=== PATIENT | female | born 1980 | race Caucasian/White ===

== ENCOUNTER 2017-08-30 21:37 | Emergency (ER) | payer OTHER ==
[~2017-08-30] VITALS: Ht 167.6 cm; Wt 112.0 kg
[~2017-08-30 21:37] MED LIST: AUGMENTIN875 MG PO; BACTRIM,SEPT1 TABLET PO; OXYCODONE-APAP1 EACH PO; VICODIN 5-3001 EACH PO
[2017-08-30] MEDS ORDERED: FLEXERIL10 MG PO (22:21)
[2017-08-30] MEDS ORDERED: NAPROSYN500 MG PO (22:21)
[2017-08-30 22:40] VITALS: BP 132/89
== END 2017-08-30 22:40 | disposition home or self-care (01) ==
LOC: EME 21:37
DX: S46.911A Strain of unspecified muscle, fascia and tendon at shoulder and upper arm level, right arm, initial encounter (principal); W19.XXXA Unspecified fall, initial encounter; F17.200 Nicotine dependence, unspecified, uncomplicated
CPT/HCPCS: 73030; 73060; 99281; 99284